=== PATIENT | female | born 1950 | race Hispanic/Latino ===

== ENCOUNTER 2022-07-03 03:57 | Emergency (ER) | payer OTHER ==
[~2022-07-03] VITALS: Ht 149.9 cm; Wt 66.2 kg
[2022-07-03 04:25] VITALS: BP 152/66
[2022-07-03] MEDS ORDERED: FAMOTIDINE 20MG VIAL IV ONE ×2 (04:38→05:00)
[2022-07-03] MEDS ORDERED: LORATADINE 10 MG TABLET ONE (04:38)
[2022-07-03] MEDS ORDERED: DEXAMETHASONE SOD PHOSPHATE 4 MG/ML 1ML VIAL ONE (04:38)
[2022-07-03] MEDS ORDERED: HYDROXYZINE 25 MG TABLET ONE (04:38)
[2022-07-03] MEDS ORDERED: METH4TAB3 PO (04:42)
[2022-07-03] MEDS ORDERED: LORA10TA7 PO (04:42)
[2022-07-03] MEDS ORDERED: HYD25 PO (04:42)
[2022-07-03] MEDS ORDERED: HYDROXYZINE 25 MG TABLET PO ONE (05:00)
[2022-07-03] MEDS ORDERED: LORATADINE 10 MG TABLET PO SCH (05:00)
[2022-07-03] MEDS ORDERED: DEXAMETHASONE SOD PHOSPHATE 10MG/ML 1ML VIAL IVP ONE (05:00)
== END 2022-07-03 05:00 | disposition home or self-care (01) ==
LOC: EDH 03:57
DX: L50.9 Urticaria, unspecified (principal); I10 Essential (primary) hypertension; K21.9 Gastro-esophageal reflux disease without esophagitis; Z79.52 Long term (current) use of systemic steroids; Z88.0 Allergy status to penicillin; Z88.8 Allergy status to other drugs, medicaments and biological substances
CPT/HCPCS: 99284; 96374; 96375; J1100; J3490